=== PATIENT | female | born 1970 | race Caucasian/White ===

== ENCOUNTER 2023-12-26 09:31 | Emergency (ER) | payer BC, SELFPAY ==
[2023-12-26 09:33] VITALS: BP 137/91; PULSE 73; RESP 16; TEMP 35.8; O2SAT 99; BMI 25.0
--- NOTE | 2023-12-26 10:30 | EX.ED.UPPERE ---
HPI History of Present Illness Chief Complaint: Upper Extremity Injury Informant: patient Narrative Narrative: [id number] female presents noting swelling to the right ring finger at 9 AM this morning. Was 90 minutes ago. No trauma. Patient states she does wear a ring however does not sleep in it. She put out 630 there is no issues. Denies any heavy gripping. She took the ring off. Swelling subsiding. PFSH PFSH Medical History no medical history Allergy/AdvReac Type Severity Reaction Status Date / Time Penicillins Allergy Intermediate Rash Verified 12/26/23 09:32 Surgical History no surgical history Social History Smoking Status: Never smoker ROS ROS ED Constitutional Constitutional ED: Denies chills, fever(s) or sweats Eyes Eyes: Denies change in vision ENT ENT ED: Denies dysphagia or sore throat Cardiovascular Cardiovascular: Denies chest pain, leg edema, palpitations or racing heartbeat Respiratory/Chest Respiratory/Chest: Denies cough, dyspnea or dyspnea on exertion Gastrointestinal Gastrointestinal: Denies abdominal pain, diarrhea, nausea or vomiting Genitourinary Genitourinary ED: Denies dysuria, hematuria or urinary frequency Musculoskeletal Musculoskeletal: Reports extremity pain and other Details: Right ring finger swelling ; Denies back pain or neck pain Integumentary Denies rash or wounds Neurologic Neurologic: Denies headache(s), paresthesias or weakness EXAM Physical Exam Const Vital Signs: 12/26/23 09:33 Temperature 96.5 F L Temperature Source Temporal Pulse Rate 73 Respiratory Rate 16 Blood Pressure 137/91 H Blood Pressure Mean 106 Pulse Ox 99 Oxygen Delivery Method Room Air Positive well nourished and well developed General Appearance ED: well developed and NAD HEENT Reports moist mucous membranes normocephalic and atraumatic Eyes EOMs intact bilaterally and conjunctivae normal General Eye ED: Yes normal appearance of both eyes Neck no lymphadenopathy and supple General: Negative for tenderness Chest Wall Chest: Negative for tenderness Resp normal respiratory effort and normal air movement Effort and Inspection: symmetric chest movement; Negative for respiratory distress Cardio regular rate, regular rhythm and no murmurs Peripheral Pulses: pulses 2+ throughout GI normal to inspection, nondistended, normoactive bowel sounds and non-tender Palpation: Negative for guarding or rebound tenderness present Back/Spine no CVA tenderness and no thoracic nor lumbar tenderness Extremity Extremity Narrative: Right hand ring finger: There is slight swelling is residual ecchymosis distal proximal phalanx on volar aspect. Skin intact. No punctures. No erythema. No bony tenderness. Full range of motion of the digit. Cap refill less than 3 seconds. General Extremety ED: Negative for edema or tenderness General Extremity: Negative for edema Neuro oriented x3 and no sensory deficits noted Sensorium / Orientation: awake and alert Skin Skin Narrative: See above MDM MDM MDM Narrative Medical decision making narrative: Interventions / MDM: Differential diagnosis: Contusion Diagnosis considered but do not suspect: No clinical cellulitis, no clinical fracture My EKG interpretation: N/A Imaging independently reviewed and interpreted by myself: N/A External documents reviewed: N/A Test considered but not ordered:N/A ED course: Patient soft tissue contusion on exam. No signs of infection. 0 out of 4 Knavel sign. Reassured with patient symptomatic treatment time. Ice pack. She will avoid placing a ring on her finger monitor symptoms. Outpatient follow-up. All questions were answered. Re-evaluation: stable Disposition discussed with patient/family/significant other: Patient Case discussed with consulting clinician: N/A This note was generated with [employer] dictation software. It may contain incorrect words, spelling, and punctuation that were not noted in checking the note before signing. Discharge Plan Triage Chief Complaint: Upper Extremity Injury ED Provider: Chace Knight Dx/Rx/DC Orders Clinical Impression: Contusion of finger of right hand Instructions: ED Finger Contusion Primary Care Provider: SUJATA HICKS Referrals: Rene Sinclair MD [Non-Staff] - 1 Week if not improving Disposition Disposition: Home, Self Care Discharge Date/Time: 12/26/23 10:40
[2023-12-26 10:36] VITALS: BP 127/69; PULSE 68; RESP 15; TEMP 36.3; O2SAT 100
== END 2023-12-26 10:40 | disposition home or self-care (01) ==
LOC: ED 10:39
PROVIDERS: Emergency Provider Emergency Medicine; PCP Nurse Practitioner Adult Health; Visit Provider Emergency Medicine
DX: S60.041A Contusion of right ring finger without damage to nail, initial encounter (principal); X58.XXXA Exposure to other specified factors, initial encounter
CPT/HCPCS: 99282